=== PATIENT | female | born 1965 | race Caucasian/White ===

== ENCOUNTER → 2025-02-09 14:26 | Outpatient (REF) | payer SELFPAY | LOC: HWRAD 14:26 | PROVIDERS: ATTENDING PHYSICIAN Physician Assistant; FAMILY PHYSICIAN Family Medicine | DX: R07.9 Chest pain, unspecified (principal); R06.00 Dyspnea, unspecified; I49.3 Ventricular premature depolarization; I49.1 Atrial premature depolarization | CPT/HCPCS: 75571 ==

== ENCOUNTER 2025-06-20 18:17 | Emergency (ER) | payer BC, SELFPAY ==
[2025-06-20 18:19] VITALS: BP 131/56
--- NOTE | 2025-06-20 21:00 | ED.GENMED ---
History of Present Illness
General
Chief Complaint: Numbness
Source: patient
Exam Limitations: none
Time Seen by Provider: 06/20/25 20:58
History of Present Illness
History of Present Illness:
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 Patient was sitting at her desk at work around 4 PM this afternoon. When she stood up, she noticed that her
left foot felt numb which caused her to roll her left ankle. The numbness lasted about a minute before resolving. She currently complains of left ankle pain after the injury. She also reports some tingling in her right toes which she has
experiencing previously. She is otherwise asymptomatic and denies any headache, dizziness, visual changes, weakness, chest pain, back pain.
Phy Exam
General Physical Exam
General Presentation: well appearing and no apparent distress
General Skin: warm and dry
General Habitus: normal
General Mental: alert
ENT Exam
ENT Exam: normocephalic
Eye Exam
Eye Exam: PERRL and conjunctiva normal
Cardiovascular Exam
Cardiovascular Exam: regular rate/rhythm, no edema, no murmur and normal peripheral pulses (2+ radial, DP, and PT pulses bilaterally)
Pulmonary Exam
Pulmonary Exam: lungs clear, no respiratory distress, no rales, no crackles, no rhonchi and no wheezing
Neurological Exam
Neurological Exam: alert, CN II-XII intact, no motor deficits, no sensory deficits, speech normal and other (5/5 strength in all extremities. No sensory deficit noted.)
Hugh Coma Scale
Eye Opening: Spontaneous
Verbal Response: Oriented
Motor Response: Obeys Commands
GCS Total Score: 15
Skin Exam
Skin Exam: normal color and warm/dry
Psychiatric Exam
Psychiatric Exam: normal mood/affect
Course
Orders/Labs/Results
Orders:
Orders
06/20/25 18:28
Electrocardiogram (*1) Urgent
Reason for Study: Other
Other Reason for Exam: Possible Stroke
EKG- Treatment ONCE
06/20/25 18:29
CR Ankle - Left Min 3 Views Urgent
Comment:
Reason For Exam: fall
06/20/25 18:30
CT Head W/o Iv Contrast Urgent
Comment:
Reason For Exam: numbness to feet
06/20/25 21:18
CR Foot - Left Min 3 Views Urgent
Comment:
Reason For Exam: injury
06/20/25 21:24
Complete Blood Count/With Diff Urgent
Comprehensive Metabolic Panel Urgent
PTT Urgent
Prothrombin Time Urgent
Troponin I Urgent
06/20/25 22:59
Pop Wrap Left-Treatment ONCE
Crutches-Treatment ONCE
Abnormal Lab Results
06/20/25
21:24
WBC 4.1 L 10^3/uL
(4.8-10.8)
MCH 32.1 H pg
(27.0-31.0)
Absolute Lymphs (auto) 0.9 L 10^3/uL
(1.2-3.4)
Glucose 125 H mg/dl
(70-99)
06/20/25 21:24
06/20/25 21:24
Vital Signs
Initial and Last Documented VS:
Initial Vital Signs
Pulse Resp BP Pulse Ox
74 16 131/56 99
06/20/25 18:19 06/20/25 18:19 06/20/25 18:19 06/20/25 18:19
Last Documented Vital Signs
Pulse Resp BP Pulse Ox
74 16 123/68 97
06/20/25 18:19 06/20/25 18:19 06/20/25 22:00 06/20/25 22:30
MDM/Problems Addressed
Differential Diagnosis Includes:
60yoF here after an episode of L foot numbness that lasted 1 minute before resolving. Rolled her ankle and c/o pain. Has some tingling in her right toes which she has had before. No chest pain/back pain. VSS. She is well appearing in no distress.
Equal pulses in all extremities. No focal neuro deficits noted. 5/5 strength and sensation intact. Differential diagnosis includes but is not limited to: neuropraxia, peripheral neuropathy, radiculopathy, less likely TIA
Initial ED plan: Triage EKG shows NSR without ischemic changes. Will check cardiac labs, CT head, and L foot/ankle x-rays.
*Pulse Oximetry
SaO2: 99
Oxygen Mode of Delivery: Room air
Patient hypoxic: no (99%)
*EKG
Interpreted by ED Provider?: Yes
EKG Intrepretation Date: 06/20/25
Heart Rate: 68
Rate: normal
Rhythm: sinus
[place]: normal axis
Interval: normal interval
QRS Pattern: normal QRS
Ischemia: no ischemia
*Critical Care Note
Total Time (30-74mins, 75-104mins- exclusive of procedures): Not Applicable
Update Note
Update Note:
Labs unremarkable including normal electrolytes and troponin. CT head negative for acute findings. No fracture seen on x-rays. No indication for hospitalization. Low suspicion for TIA given that symptoms were isolated to L foot. Pop wrap and
crutches provided. She was advised to f/u with her PCP and neurologist. ED return precautions reviewed. Patient discharged in stable condition.
ED Attending Note
-
Portions of this chart may have been created with voice recognition software.� Occasional wrong word or��sound alike� substitutions may have occurred due to the inherent limitations of voice recognition software.
Discharge Plan
Departure
Patient Disposition: Home (Routine Discharge)
Date of Disposition: 06/20/25
Time of Disposition: 22:58
Patient with high blood pressure during this ER visit?: No
Discharge Problem:
Paresthesia of left foot, Left ankle sprain
Instructions: Paresthesia (DC)
Referrals:
Taylor Rodríguez MD [Family Provider, Family Practice]
Activity Restrictions/Additional Instructions:
Apply ice to your ankle and compress. Use crutches as needed.
Please follow with your family doctor. Return to the ER with any new or worsening symptoms.
Interventions
Interventions:
*Risk Screen - Suicide Last Done: 06/20/25 18:19
*General Assessment Last Done: 06/20/25 18:19
*ED COVID-19 Vaccine History Last Done: 06/20/25 18:19
*Nursing Disposition Last Done: 06/20/25 23:14
ED- Neurological Assessment Last Done: 06/20/25 21:07
Discharge Date and Time
Discharge Date/Time: 06/20/25 23:14
Print Language: MAORI
[2025-06-20 21:09] VITALS: BMI 19.2
[2025-06-20 21:16] VITALS: BP 121/60
[2025-06-20 21:35] LABS: Hematocrit 40.0 % (37.0-47.0); Hemoglobin 13.6 g/dL (12.0-16.0); Mean Corp Hgb Conc. 34.0 g/dL (33.0-37.0); Mean Corpuscular Volume 94.3 fL (81.0-99.0); Nucleated Red Blood Cells % 0 %; Platelet Count 251 10^3/uL (130-400); Red Cell Dist. Width 11.7 % (11.5-14.5)
[2025-06-20 21:43] VITALS: BP 118/64
[2025-06-20 21:46] LABS: INR 0.98; PT 13.3 Sec (11.4-14.6)
[2025-06-20 21:47] LABS: APTT 25.4 Sec (23.4-35.0)
[2025-06-20 21:50] LABS: ALT (SGPT) 17 U/L (0-35); AST (SGOT) 24 U/L (14-36); Albumin 4.6 g/dl (3.5-5.0); Alkaline Phosphatase 66 U/L (38-126); Blood Urea Nitrogen 16 mg/dl (7-17); Calcium 9.5 mg/dl (8.4-10.2); Carbon Dioxide 30 mmol/L (22-30); Chloride 104 mmol/L (98-107); Estimated Creatinine Clearance 72 ml/min; Glucose 125 mg/dl (70-99); Potassium 4.7 mmol/L (3.5-5.1); Sodium 139 mmol/L (135-145); Total Protein 7.4 g/dl (6.3-8.2); eGFR > 60.00
[2025-06-20 21:58] LABS: Troponin I < 0.012 ng/ml
[2025-06-20 22:00] VITALS: BP 123/68
== END 2025-06-20 23:14 | disposition home or self-care (01) ==
LOC: EMR 18:17
PROVIDERS: EMERGENCY PHYSICIAN Emergency Medicine; FAMILY PHYSICIAN Family Medicine
DX: S93.402A Sprain of unspecified ligament of left ankle, initial encounter (principal); R20.2 Paresthesia of skin; X50.1XXA Overexertion from prolonged static or awkward postures, initial encounter
CPT/HCPCS: 99285; 70450; 73610; 73630; 80053; 84484; 85025; 85610; 85730; 93005